=== PATIENT | female | born 1945 | race Caucasian/White ===

== ENCOUNTER 2020-09-05 14:25 | Outpatient (REF) | payer MEDICARE, SELFPAY ==
[2020-09-05 18:28] LABS: Estimated Average Glucose 169 mg/dL; Hemoglobin A1c % 7.5 %
== END 2020-09-05 14:26 | disposition home or self-care (01) ==
LOC: HO.MANLDS 14:25
PROVIDERS: PCP Internal Medicine; Visit Provider Internal Medicine
DX: E11.42 Type 2 diabetes mellitus with diabetic polyneuropathy (principal)
CPT/HCPCS: 36415; 83036